=== PATIENT | male | born 1960 | race Caucasian/White ===

== ENCOUNTER 2021-01-07 13:16 | Day surgery (SDC) | payer OTHER ==
[~2021-01-07] VITALS: Ht 172.7 cm; Wt 99.1 kg
[~2021-01-07 13:16] MED LIST: LOTREL 5/20 MG1 CAP PO
[2021-01-07 13:48] LABS: BASOPHILS 0.2 % (0-2); HEMOGLOBIN 15.7 g/dL (13.5-17.5); IMMATURE GRANULOCYTES 0.3 % (0-5); LYMPHOCYTE ABS# 1.54 10x3/uL (1.32-3.57); LYMPHOCYTES 25.6 % (15-50); MCH 30.7 pg (26.0-34.0); MCHC 34.9 g/dL (31.0-37.0); MCV 87.9 fL (80.0-100.0); MEAN PLATELET VOLUME 10.9 fL (7.4-10.4); MONOCYTES 7.3 % (2-11); NEUTROPHIL ABS# 3.95 10x3/uL (1.78-5.38); NEUTROPHILS 65.6 % (40-80); PLATELET COUNT 207 10x3/uL (130-400); RBC 5.12 10x6/uL (4.20-6.10); RDW 12.3 % (11.5-14.5)
[2021-01-07 14:27] VITALS: BP 116/75; Ht 172.7 cm; Wt 99.1 kg
--- NOTE | 2021-01-07 15:40 | NUR ---
7538 INSTRUCTIONS GIVEN TO PT AND FAMILY. MILADYS SAENZ IN ROOM TO TALK TO PT
--- NOTE | 2021-01-07 16:13 | NUR ---
1600 IV REMOVED AND PT D/C HOME
--- NOTE | 2021-01-08 14:17 | OP ---
PATIENT NAME: AZUCENA REYNOLDS MEDICAL RECORD: [id number] :58 LOCATION:[facility] ADMISSION DATE: SURGEON: MARIA DEL CARMEN SAENZ MD DATE OF OPERATION: 01/07/2021 PREOPERATIVE DIAGNOSIS: History of polyps. MEDICATION: Propofol per anesthesia. INDICATIONS: This patient is a pleasant gentleman who has a history of polyps and was also admitted for diverticulitis in April of 2020. DESCRIPTION OF PROCEDURE: The patient was placed in the left lateral position. The colonoscope was inserted through the rectum and advanced to the cecum, identified by the ileocecal valve and the appendiceal orifice. The quality of the prep was good. There was a 4-mm cecal polyp. This was removed with hot biopsy polypectomy. There were also a few sigmoid diverticula visualized. The remainder of the exam was normal. The patient tolerated the procedure well. FINAL DIAGNOSES: Cecal polyp removed with hot biopsy forceps, few sigmoid diverticula. PLAN: Advance diet. Recommend fiber supplements. Follow up on biopsy results. 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
== END 2021-01-07 16:21 | disposition home or self-care (01) ==
LOC: D.OPS 13:16
PROVIDERS: Anesthesiology; ATTEND Internal Medicine Gastroenterology
DX: Z86.010 Personal history of colon polyps (principal); K63.5 Polyp of colon; K57.30 Diverticulosis of large intestine without perforation or abscess without bleeding; Z12.11 Encounter for screening for malignant neoplasm of colon